=== PATIENT | female | born 1975 ===

== ENCOUNTER 2024-10-30 05:59 | Day surgery (SDC) | payer OTHER ==
[2024-10-28 11:32] VITALS: BP 113/78
[2024-10-28 11:40] LABS: COVID-19 AG NEGATIVE (NEGATIVE)
[~2024-10-30] VITALS: Ht 160 cm; Wt 57.2 kg
[2024-10-30] MEDS ORDERED: CEFAZOLIN SODIUM 1,000 MG VIAL ONE (09:14)
[2024-10-30] MEDS ORDERED: METRONIDAZOLE/SODIUM CHLORIDE 500 MG/100 ML PIGGYBACK IV ONE ×2 (09:14→10:45)
[2024-10-30] MEDS ORDERED: POVIDONE-IODINE 118 ML BOTT TOP ONE ×2 (09:48→10:45)
[2024-10-30] MEDS ORDERED: CEFAZOLIN SODIUM 1,000 MG VIAL IV ONE (10:45)
[2024-10-30] MEDS ORDERED: KETOROLAC TROMETHAMINE 30 MG VIAL IV STA (10:57)
[2024-10-30] MEDS ORDERED: KETOROLAC TROMETHAMINE 30 MG VIAL ONE (12:00)
[2024-10-30 20:14] VITALS: BP 126/68; O2SAT 100
== END 2024-10-30 16:55 | disposition home or self-care (01) ==
LOC: CIR.AMB 05:59
PROVIDERS: ATTEND Obstetrics & Gynecology Gynecologic Oncology
DX: N85.00 Endometrial hyperplasia, unspecified (principal); Z88.2 Allergy status to sulfonamides